=== PATIENT | female | born 1995 | race Caucasian/White ===

== ENCOUNTER 2023-08-04 10:06 | Emergency (ER) | payer OTHER, SELFPAY ==
[2023-08-04 10:10] VITALS: BP 133/73; PULSE 73; RESP 16; TEMP 36.8; O2SAT 99
--- NOTE | 2023-08-04 13:04 | ED.GENADULT ---
HPI - General Adult General Chief complaint: Unspecified Stated complaint: mass to right breast Time Seen by Provider: 08/04/23 12:03 History of Present Illness HPI narrative: This is a 28-year-old female, with no significant past medical history though with family history of breast cancer in her mother and maternal grandmother, who presents to the emergency department complaining of right breast pain for the past 4 days. The patient states 4 days ago she started her menstrual cycle, this is associated with sharp 4/10 pain at the medial aspect of the right breast associated with drainage of a thicker white substance from both nipples, greater on the right. She has no other complaints at this time. Related Data Allergies Allergy/AdvReac Type Severity Reaction Status Date / Time gabapentin Allergy Hives Verified 08/04/23 11:35 Review of Systems Review of Systems: CONSTITUTIONAL: Denies fever, chills, or sweats. CARDIOVASCULAR: Denies chest pain, palpitations, or edema. RESPIRATORY: Denies cough or dyspnea. GASTROINTESTINAL: Denies abdominal pain, nausea, vomiting, or diarrhea. GENITOURINARY: Denies dysuria or hematuria. SKIN: Right breast pain and drainage from the right nipple. Denies rash or itching. MUSCULOSKELETAL: Denies back pain, joint pain, or myalgia. NEUROLOGIC: Denies headache, numbness, dizziness, or weakness. PSYCHIATRIC: Denies anxiety or depression. PMFSH Past Medical History Medical History (Updated 08/04/23 @ 13:08 by Chance Mai MD) No significant medical problems Surgical History Surgical History (Updated 08/04/23 @ 13:08 by Chance Mai MD) No significant past surgical history Family History Family History (Updated 08/04/23 @ 13:08 by Chance Mai MD) Mother Breast cancer Grandparent Breast cancer Social History Social History (Updated 08/04/23 @ 13:09 by Chance Mai MD) Smoking status: Never smoker Alcohol intake: current Drinks per week: 1 Substance use: never Exam Narrative: GENERAL: Well-developed, well-nourished, and in no acute distress. HEAD: Normocephalic, atraumatic. EYES: PERRLA and EOMI. CHEST: Clear to auscultation. No respiratory distress. No wheezes rales or rhonchi HEART: Regular rate and rhythm. No murmur heard. Normal peripheral pulses. ABDOMEN: Soft, nontender, nondistended, normal active bowel sounds. SKIN: There appear to be early peau d'orange changes of the skin of the right medial breast at the 3 o'clock position. There is a tender, soft mass that feels somewhat fixed measuring approximately 2 x 2 cm. There is a second area of pain to the lateral aspect of the right breast. There was a small amount of white discharge from the right nipple on expression. The left breast appears unremarkable with no discharge expressed. Warm, dry, no rash. NEURO: Alert and oriented x3. Moving all 4 limbs purposefully. PSYCH: Normal mood and affect. Course Course Emergency Course: 13:03 - Bedside ultrasound by me does not demonstrate fluid collection concerning for abscess or cyst. Considering the patient's strong family history of breast cancer, I advised the patient to follow-up closely with her primary care doctor and a OB continuous still operator for repeat breast exam and mammogram. Discussed return and emergency precautions including signs/symptoms of infection and ACS. The patient voiced understanding and is comfortable with the plan. All questions answered to her satisfaction. Vital Signs Vital signs: Vital Signs Temperature 98.2 F 08/04/23 10:10 Pulse Rate 73 08/04/23 10:10 Respiratory Rate 16 08/04/23 10:10 Blood Pressure 133/73 08/04/23 10:10 Pulse Oximetry 99 08/04/23 10:10 Oxygen Delivery Room Air 08/04/23 10:10 Temperature 98.2 F 08/04/23 10:10 Pulse Rate 73 08/04/23 10:10 Respiratory Rate 16 08/04/23 10:10 Blood Pressure 133/73 08/04/23 10:10 Pulse Oximetry 99 08/04/23 10:10
== END 2023-08-04 13:29 | disposition home or self-care (01) ==
PROVIDERS: Emergency Provider Preventive Medicine Aerospace Medicine; PCP Nurse Practitioner Family
DX: N64.4 Mastodynia (principal)
CPT/HCPCS: 99281